=== PATIENT | male | born 1945 | race Caucasian/White ===

== ENCOUNTER 2017-12-02 06:57 | Emergency (ER) | payer OTHER ==
[~2017-12-02] VITALS: Ht 177.8 cm; Wt 88.6 kg
[~2017-12-02 06:57] MED LIST: ASPIR-LOW81 MG PO; CAL MAG ZINC +1 EAC1 PO; CENTRUM SILVER1 EAC1 PO; MOTRIN600 MG PO; OXYCODONE HCL5 MG PO; PAXIL20 MG PO; PAXIL40 MG PO; POTASSIUM-9999 MG PO; PRAVASTATIN SOD40 MG PO; SUPER B COMP1 TABLET PO; TAMSULOSIN HCL0.4 MG PO
[2017-12-02 08:00] LABS: BASOPHIL (%) 0.3 % (0-1); EOSINOPHIL (%) 0.8 % (0-5); EOSINOPHIL COUNT 0.1 K/uL (0-0.3); HEMATOCRIT 44.6 % (38.0-50.0); HEMOGLOBIN 15.2 G/DL (12.5-16.6); IMMATURE GRANULOCYTE (%) 0.5 % (0.0-0.7); LYMPHOCYTE (%) 24.9 % (15-42); LYMPHOCYTE COUNT 1.6 K/uL (1.0-2.8); MCH 31.2 PG (29.0-34.0); MCHC 34.1 G/DL (30.0-36.0); MCV 91.6 FL (86-99); MONOCYTE (%) 6.9 % (3-12); MONOCYTE COUNT 0.4 K/uL (0-0.8); NEUTROPHIL (%) 66.6 % (45-76); NEUTROPHIL COUNT 4.3 K/uL (1.8-6.4); PLATELET COUNT 156 K/uL (156-360); RBC DIS.WIDTH-CV 12.3 % (11.8-14.6); RBC DIS.WIDTH-SD 41.1 % (39-53); RED BLOOD COUNT 4.87 M/uL (4.00-5.50); WHITE BLOOD COUNT 6.4 K/uL (4.1-10.2)
[2017-12-02 08:12] LABS: ALBUMIN 4.4 g/dL (3.2-4.8); CHLORIDE 105 mEq/L (99-109); POTASSIUM 4.5 mEq/L (3.7-5.4); SODIUM 140 mEq/L (136-147)
[2017-12-02 08:13] LABS: AMYLASE 25 IU/L (1-118)
[2017-12-02 08:15] LABS: GLUCOSE 129 mg/dL (70-99); TOTAL PROTEIN 7.4 g/dL (6.4-8.3)
[2017-12-02 08:16] LABS: TOTAL BILIRUBIN 1.3 mg/dL (0.0-1.0)
[2017-12-02 08:18] LABS: ALKALINE PHOSPHATASE 73 IU/L (3-129); CREATININE 0.8 mg/dL (0.6-1.3); GFR ESTIMATE (CALCULATED) > 59 mL/min/ (58.99-99999); SERUM ETHYL ALCOHOL < 10 mg/dL
[2017-12-02 08:19] LABS: UREA NITROGEN (BUN) 19 mg/dL (9-23)
[2017-12-02 08:20] LABS: AST (GOT) 34 IU/L (2-34)
[2017-12-02 08:21] LABS: ALT (GPT) 23 IU/L (3-49)
[2017-12-02 10:27] LABS: APPEARANCE CLEAR ((CLEAR)); BILIRUBIN NEGATIVE; BLOOD NEGATIVE; COLOR STRAW ((YELLOW)); GLUCOSE (STRIP) NEGATIVE; KETONES NEGATIVE; LEUKOCYTES NEGATIVE; NITRITE NEGATIVE; PROTEIN (STRIP) NEGATIVE; SPECIFIC GRAVITY 1.025 (1.000-1.030); UROBILINOGEN 0.2 MG/DL (0.2-1.0)
[2017-12-02] MEDS ORDERED: NORCO 5/3251 TABLET PO (10:29)
[2017-12-02 10:58] VITALS: BP 122/76
== END 2017-12-02 11:09 | disposition home or self-care (01) ==
LOC: EME 06:57
PROVIDERS: Emergency Medicine
DX: S32.019A Unspecified fracture of first lumbar vertebra, initial encounter for closed fracture (principal); S32.029A Unspecified fracture of second lumbar vertebra, initial encounter for closed fracture; M43.8X6 Other specified deforming dorsopathies, lumbar region; V49.40XA Driver injured in collision with unspecified motor vehicles in traffic accident, initial encounter; Y92.410 Unspecified street and highway as the place of occurrence of the external cause; J43.9 Emphysema, unspecified; J84.10 Pulmonary fibrosis, unspecified; R91.8 Other nonspecific abnormal finding of lung field
CPT/HCPCS: 71260; 72129; 72132; 74177; 80053; 81003; 82150; 85025; 99281; 99285; G0480; J3010; J7040